=== PATIENT | female | born 1975 | race Asian ===

== ENCOUNTER 2023-10-09 10:14 | Outpatient (CLI) | payer OTHER | END 2023-10-09 10:15 | disposition home or self-care (01) | LOC: CSHULT 10:14 | PROVIDERS: ATTEND Physician Assistant | DX: E06.9 Thyroiditis, unspecified (principal); E04.1 Nontoxic single thyroid nodule | CPT/HCPCS: 76536 ==

== ENCOUNTER 2024-05-11 12:39 | Outpatient (CLI) | payer OTHER | END 2024-05-11 12:40 | disposition home or self-care (01) | LOC: CSHULT 12:39 | PROVIDERS: ATTEND Otolaryngology Otolaryngic Allergy | DX: E05.20 Thyrotoxicosis with toxic multinodular goiter without thyrotoxic crisis or storm (principal) | CPT/HCPCS: 76536 ==